=== PATIENT | female | born 1995 | race American Indian/Alaskan Native ===

== ENCOUNTER 2024-06-13 11:45 | Emergency (ER) | payer BC, SELFPAY ==
[2024-06-13 11:48] VITALS: BP 155/102
--- NOTE | 2024-06-13 12:29 | ED.GENMED ---
History of Present Illness
General
Chief Complaint: Abdominal Pain
Source: patient
Exam Limitations: none
Time Seen by Provider: 06/13/24 11:59
Nursing documentation reviewed up to this point in time: agreed with
History of Present Illness
History of Present Illness:
28 yr old female presents to the ED for evaluation of right lower quadrant pain since February. Patient reports initially she thought it was gynecologic related and did see DIRECTOR ERP. She had an unremarkable pelvic ultrasound and had normal blood work.
She saw DIRECTOR ERP May 19. She has had persistent intermittent pain in the right lower quadrant that comes and goes. Is not associate with food or movement. This morning while in bed she had sudden onset of pain which was severe which is what prompted
her to come to the ER. She does feel little pain to her back and has had this back pain intermittently for the past week. She does have a history of kidney stones but this does not feel the same. She denies any urinary frequency urgency fever
chills. Denies any vaginal discharge. She has no prior history pregnancies. LMP is 05/24.
Review of Systems
Review of Systems
Allergies reviewed?: Yes
All Other Systems: ROS reviewed and negative except as documented in HPI and ROS
Constitutional: Reports no symptoms; Denies fever, fatigue or chills
Respiratory: Reports no symptoms
Cardiac: Reports no symptoms
ABD/GI: Reports abdominal pain; Denies nausea, vomiting or diarrhea
: Reports no symptoms
Musculoskeletal: Reports no symptoms
Skin: Reports no symptoms
Neurological: Reports no symptoms
Psychiatric: Reports no symptoms
Phy Exam
General Physical Exam
General Presentation: no apparent distress
General age: appears stated age
General Skin: warm and dry
General Habitus: normal
General Mental: alert
Gastrointestinal Exam
Gastrointestinal Exam: soft and other (mild rlq tenderness )
Neurological Exam
Neurological Exam: alert and oriented x3
Musculoskeletal Exam
Musculoskeletal Exam: full ROM
Skin Exam
Skin Exam: normal color and warm/dry
Psychiatric Exam
Psychiatric Exam: normal mood/affect
Course
Orders/Labs/Results
Orders:
Orders
06/13/24 12:40
CT Abd/pel W Iv And Oral Contr Urgent
Comment:
Reason For Exam: rlq pain
Iohexol [Omnipaque] See Protocol PO NOW STA
Test Result ONCE
06/13/24 13:12
Complete Blood Count/With Diff Urgent
Comprehensive Metabolic Panel Urgent
HCG, Serum Qualitative Screen Urgent
Lipase Urgent
Urinalysis Reflex To Culture Urgent
Date Specimen was Collected: 06/13/24
Time Specimen was Collected: 13:06
06/13/24 16:19
Vital Signs- Treatment ONCE
Frequency: Once
Abnormal Lab Results
06/13/24
13:12
RBC 4.13 L 10^6/uL
(4.20-5.40)
Hgb 11.7 L g/dL
(12.0-16.0)
Hct 34.9 L %
(37.0-47.0)
Absolute Neuts (auto) 7.7 H 10^3/uL
(1.4-6.5)
Absolute Monos (auto) 0.8 H 10^3/uL
(0.1-0.6)
Lymphocytes % 17.7 L %
(20.5-51.1)
06/13/24 13:12
06/13/24 13:12
Vital Signs
Initial and Last Documented VS:
Initial Vital Signs
Temp Pulse Resp BP Pulse Ox
98.6 F 115 20 155/102 99
06/13/24 11:48 06/13/24 11:48 06/13/24 11:48 06/13/24 11:48 06/13/24 11:48
Last Documented Vital Signs
Temp Pulse Resp BP Pulse Ox
98.6 F 83 20 119/73 99
06/13/24 11:48 06/13/24 16:32 06/13/24 16:32 06/13/24 16:32 06/13/24 14:00
MDM/Problems Addressed
MDM/Problems Addressed:
Patient is a 28-year-old female who has had intermittent right lower quadrant pain since February. She saw her family engagement specialist as an outpatient had a normal ultrasound. Today she presents back with continued right lower quadrant pain she reports is very
low and was into her groin. She has had pain in her back this past week. She denies any food that makes it worse it is not made worse with movement. She presents awake alert no acute distress.
At this time(0) patient denies any abdominal pain mild low back discomfort urinalysis negative blood work CAT scan. v CAT scan shows nonspecific ileitis may be infectious or inflammatory there is a masslike structure to the right of the midline
in the posterior superior pelvis measuring 4.1 cm x 4.6 cm may be associated the right ovary. CAT scan also shows questionable short segment of possible 9 of small bowel intussusception left lateral mid to lower abdomen. Currently on reexam she
has no abdominal pain mild lower back discomfort. /case d.c w. DR Carey . d/c with surg who does report that this is a very common CAT scan finding nothing further to do the ileitis may be likely Crohn's versus enteritis will need outpatient
follow-up. Will review with DIRECTOR ERP.
Regarding DIRECTOR ERP findings on CAT scan I texted DR Solis and reviewed CT findings. She does recommend outpatient follow up with DIRECTOR ERP and recommend MRI. to return if any woresing of s/s.
Patient feels comfortable going home with outpatient follow-up will give patient follow-up with her family doctor as well as GI for further evaluation of ileitis, nonspecific I did however discuss the importance of outpatient DIRECTOR ERP follow-up and
recommend MRI. She is in no acute distress and no abdominal pain at this time.
*Radiology
Radiology exam reviewed: radiology read reviewed
*Critical Care Note
Total Time (30-74mins, 75-104mins- exclusive of procedures): Not Applicable
Patient Management
Discussion with other providers: Bottoming Room Supervisor (DR Solis DIRECTOR ERP DR Ocasio )
ED Attending Note
-
Portions of this chart may have been created with voice recognition software.� Occasional wrong word or��sound alike� substitutions may have occurred due to the inherent limitations of voice recognition software.
Discharge Plan
Departure
Patient Disposition: Home (Routine Discharge)
Date of Disposition: 06/13/24
Time of Disposition: 17:14
Patient with high blood pressure during this ER visit?: Yes
Covid-19: Not Applicable
Discharge Problem:
Abdominal pain
Instructions: Abdominal Pain
Referrals:
Raf Johnson MD [Active] -
NONE,* [Family Provider] -
Activity Restrictions/Additional Instructions:
As discussed your CAT scan does show a soft tissue structure which may be associated with the right ovary measuring 4.1 cm x 4.6 cm. This does need close evaluation by your family engagement specialist and is recommended that it MRI be done to further investigate
this.
In addition there is nonspecific ileitis inflammation found on your CAT scan closely follow-up with your family doctor as well as GI for this. Return if any worsening of symptoms
Interventions
Interventions:
*Risk Screen - Suicide Last Done: 06/13/24 11:48
*General Assessment Last Done: 06/13/24 11:48
*Neglect/Abuse Screening Last Done: 06/13/24 11:48
ED- Fall Risk Assessment Last Done: 06/13/24 12:59
*ED COVID-19 Vaccine History Last Done: 06/13/24 12:59
SH-Ziaicn-Loitltnbsg Assessment Last Done: 06/13/24 12:59
Discharge Date and Time
Print Language: BURKINAN
[2024-06-13 12:59] VITALS: BMI 19.8
[2024-06-13 13:00] VITALS: BP 138/94
[2024-06-13] MEDS: OMNIPAQUE 50 ML PO (13:12)
[2024-06-13 13:38] LABS: % Basophils 0.4 % (0-2); % Eosinophils 0.7 % (0-6); % Immature Granulocytes 0.4 % (0-0.5); % Lymphocytes 17.7 % (20.5-51.1); % Monocytes 7.3 % (1.7-9.3); % Neutrophils 73.5 % (42.2-75.2); Absolute Eosinophils 0.1 10^3/uL (0-0.7); Absolute Lymphocytes 1.8 10^3/uL (1.2-3.4); Absolute Monocytes 0.8 10^3/uL (0.1-0.6); Absolute Neutrophils 7.7 10^3/uL (1.4-6.5); Hematocrit 34.9 % (37.0-47.0); Hemoglobin 11.7 g/dL (12.0-16.0); Mean Corp Hgb Conc. 33.5 g/dL (33.0-37.0); Mean Corpuscular Hgb 28.3 pg (27.0-31.0); Mean Corpuscular Volume 84.5 fL (81.0-99.0); Mean Platelet Volume 10.3 fL (7.4-10.4); Nucleated Red Blood Cells % 0 %; Platelet Count 336 10^3/uL (130-400); Red Blood Cell Count 4.13 10^6/uL (4.20-5.40); Red Cell Dist. Width 12.9 % (11.5-14.5); White Blood Cell Count 10.4 10^3/uL (4.8-10.8)
[2024-06-13 13:48] LABS: Urine Albumin Negative (Neg - Trace); Urine Bilirubin Negative (Negative); Urine Character Clear (Clear); Urine Color Straw; Urine Glucose Negative (Negative); Urine Ketone Negative (Negative); Urine Leukocyte Negative (Negative); Urine Nitrite Negative (Negative); Urine Occult Blood Negative (Negative); Urine Specific Gravity 1.005 (<1.030); Urine Urobilinogen Negative (Neg - 1+)
[2024-06-13 13:51] LABS: HCG, Serum Qualitative Screen Negative
[2024-06-13 13:56] LABS: ALT (SGPT) 14 U/L (0-35); AST (SGOT) 17 U/L (14-36); Albumin 4.2 g/dl (3.5-5.0); Alkaline Phosphatase 87 U/L (38-126); Blood Urea Nitrogen 11 mg/dl (7-17); Calcium 9.6 mg/dl (8.4-10.2); Carbon Dioxide 26 mmol/L (22-30); Chloride 102 mmol/L (98-107); Estimated Creatinine Clearance 90 ml/min; Glucose 85 mg/dl (70-99); Lipase 212 U/L (23-300); Potassium 4.2 mmol/L (3.5-5.1); Sodium 136 mmol/L (135-145); Total Bilirubin 0.4 mg/dl (0.2-1.3); Total Protein 7.1 g/dl (6.3-8.2); eGFR > 60.00
[2024-06-13 14:00] VITALS: BP 115/84
[2024-06-13 16:32] VITALS: BP 119/73
[2024-06-13 17:43] VITALS: BP 119/73
== END 2024-06-13 17:43 | disposition home or self-care (01) ==
LOC: EMR 11:45
PROVIDERS: Nurse Practitioner; EMERGENCY PHYSICIAN Student in an Organized Health Care Education/Training Program
DX: R10.31 Right lower quadrant pain (principal)
CPT/HCPCS: 99284; 74177; 80053; 81003; 83690; 84703; 85025; Q9967